=== PATIENT | female | born 1975 | race Caucasian/White ===

== ENCOUNTER 2021-01-13 19:54 | Emergency (ER) | payer BC, OTHER ==
[~2021-01-13 19:54] MED LIST: AUGMENTIN 875-1 EACH PO; DOXYCYCLINE HY100 MG PO
[2021-01-13] MEDS ORDERED: NAPROSYN500 MG PO (21:48)
[2021-01-13] MEDS ORDERED: CYCLOBENZAPRINE5 MG PO (21:48)
== END 2021-01-13 21:55 | disposition home or self-care (01) ==
LOC: ER1 19:54
DX: M25.511 Pain in right shoulder (principal)
CPT/HCPCS: 73030; 96372; 99283; J1885

== ENCOUNTER 2021-09-22 16:00 | Emergency (ER) | payer BC ==
[~2021-09-22 16:00] MED LIST changes: +CYCLOBENZAPRINE5 MG PO; +NAPROSYN500 MG PO
[2021-09-22 17:28] LABS: HEMOGLOBIN 15.1 gm/dl (12.3-15.3); RED BLOOD COUNT 4.8 M/UL (4.00-5.10); WHITE BLOOD COUNT 11.2 K/UL (4.5-11.0)
[2021-09-22 17:44] LABS: BUN/CREATININE RATIO 16 (0-10)
[2021-09-22] MEDS ORDERED: CARAFATE1 GM PO (21:39)
[2021-09-22] MEDS ORDERED: PROTONIX40 MG PO (21:39)
== END 2021-09-22 21:44 | disposition home or self-care (01) ==
LOC: ER1 16:00
PROVIDERS: Physician Assistant
DX: R10.13 Epigastric pain (principal); R10.812 Left upper quadrant abdominal tenderness; Z88.1 Allergy status to other antibiotic agents; Z88.8 Allergy status to other drugs, medicaments and biological substances; Z88.5 Allergy status to narcotic agent
CPT/HCPCS: 80053; 81001; 82150; 82550; 82553; 83690; 83874; 84484; 85025; 93005; 99284; Q9967